=== PATIENT | female | born 1965 | race African-American/Black ===

== ENCOUNTER 2017-12-14 09:51 | Observation (INO) ==
[2017-12-14 11:25] LABS: Basophils % 0.6 % (0.0-0.8); Eosinophils # 0.1 10*3/uL (0.0-0.87); Eosinophils % 1.7 % (0.00-10.9); Hematocrit 38.7 VOL% (35.7-47.0); Immature Granulocytes % 0.3 %; Immature Granulocytes Absolute 0.02 #; Mean Corpuscular HGB Conc 33.6 GM/DL (32-36); Mean Corpuscular Hemoglobin 28 PG (27-34); Mean Corpuscular Volume 83.6 FL (87-102); Mean Platelet Volume 11.4 FL (9.6-12.0); Monocytes # 0.5 10*3/uL (0.11-0.8); Monocytes % 7.4 % (1.7-12.7); Neutrophils # 3.9 10*3/uL (1.4-7.4); Platelet Count 268 T/CUMM (130-400); Red Blood Count 4.63 MC/CUMM (3.8-5.5); Red Cell Distribution Width 13.9 % (9.3-17.3); White Blood Count 6.5 T/CUMM (4-12)
[2017-12-14 12:17] LABS: Albumin 3.9 G/DL (3.4-5.0); Bilirubin,Total 0.5 MG/DL (0.2-1.0); Calcium 9.8 MG/DL (8.5-10.1); Osmolality,Calculated 280.3 MOS/KG (273-304); Potassium 3.4 MMOL/L (3.5-5.1); Total Protein 7.8 G/DL (6.4-8.3)
[2017-12-14] MEDS ORDERED: ONDANSETRON 4 MG/2 ML VIAL IV STA (12:53)
[2017-12-14] MEDS ORDERED: MORPHINE 4 MG/1 ML VIAL IV STA (12:53)
[2017-12-14] MEDS ORDERED: ASPIRIN 325 MG TABLET PO STA (12:53)
[2017-12-14] MEDS ORDERED: METOPROLOL TARTRATE 25 MG TABLET PO STA (12:53)
[2017-12-14] MEDS ORDERED: NITROGLYCERIN 2% OINT 1 INCH/GM PACK TOP STA (12:53)
[2017-12-14] MEDS ORDERED: ALUM/MAG/SIMETH/LIDO VISC 1:1 30 ML BOTTLE PO STA (12:53)
[2017-12-14] MEDS ORDERED: CETIRIZINE 10 MG TABLET PO PRN (14:21)
[2017-12-14] MEDS ORDERED: DICLOFENAC 1% GEL 100 GM TUBE TOP PRN (14:21)
[2017-12-14] MEDS ORDERED: LIDOCAINE 5% PATCH TRANSDERM PRN (14:21)
[2017-12-14] MEDS ORDERED: MORPHINE 4 MG/1 ML VIAL IV PRN (14:23)
[2017-12-14] MEDS ORDERED: ONDANSETRON 4 MG/2 ML VIAL IV PRN (14:23)
[2017-12-14] MEDS ORDERED: diphenhydrAMINE CAP 25 MG CAPSULE PO PRN (14:23)
[2017-12-14] MEDS ORDERED: ACETAMINOPHEN 325 MG TABLET PO PRN (14:23)
[2017-12-14] MEDS ORDERED: DOCUSATE SODIUM 100 MG CAPSULE PO PRN (14:23)
[2017-12-14] MEDS ORDERED: LISINOPRIL 20 MG TABLET PO SCH (14:30)
[2017-12-14] MEDS ORDERED: POTASSIUM CHLORIDE 20 MEQ TABLET PO ONE (14:32)
[2017-12-14] MEDS: ASPIRIN EC 81 MG TABLET PO SCH (15:00)
[2017-12-14] MEDS: OLMESARTAN 20 MG TABLET PO SCH (15:34)
[2017-12-14] MEDS: ATORVASTATIN 10 MG TABLET PO SCH (15:34)
[2017-12-14] MEDS: OMEGA 3 ACID ETHYL ESTERS 1 GM CAPSULE PO SCH (15:35)
[2017-12-14] MEDS: GABAPENTIN 600 MG TABLET PO SCH (15:35)
[2017-12-14] MEDS: ENOXAPARIN 40 MG/0.4 ML SYRINGE SUBCUT SCH (15:35)
[2017-12-14] MEDS: PANTOPRAZOLE 40 MG TABLET PO SCH (15:35)
[2017-12-14] MEDS: amLODIPine 10 MG TABLET PO SCH (15:35)
[2017-12-14] MEDS: FLUoxetine 20 MG CAPSULE PO SCH (15:36)
[2017-12-14] MEDS: hydroCHLOROthiazide 25 MG TABLET PO SCH (15:36)
[2017-12-14] MEDS ORDERED: GABAPENTIN 600 MG TABLET PO SCH (21:00)
[2017-12-14] MEDS ORDERED: PRAZOSIN 1 MG CAPSULE PO SCH (21:00)
[2017-12-14] MEDS ORDERED: tiZANidine 4 MG TABLET PO SCH (21:00)
[2017-12-15 05:34] LABS: Basophils % 0.6 % (0.0-0.8); Eosinophils # 0.2 10*3/uL (0.0-0.87); Eosinophils % 2.8 % (0.00-10.9); Hemoglobin 11.2 GM/DL (12.0-16.0); Immature Granulocytes % 0.5 %; Immature Granulocytes Absolute 0.03 #; Lymphocytes % 31.4 % (21.3-54.2); Mean Corpuscular Hemoglobin 27 PG (27-34); Mean Corpuscular Volume 85.2 FL (87-102); Mean Platelet Volume 11.6 FL (9.6-12.0); Monocytes # 0.5 10*3/uL (0.11-0.8); Monocytes % 7.4 % (1.7-12.7); Neutrophils # 3.7 10*3/uL (1.4-7.4); Neutrophils % 57.3 % (38.7-73.9); Platelet Count 257 T/CUMM (130-400); Red Blood Count 4.11 MC/CUMM (3.8-5.5); Red Cell Distribution Width 14.1 % (9.3-17.3); White Blood Count 6.5 T/CUMM (4-12)
[2017-12-15 06:15] LABS: Osmolality,Calculated 285.3 MOS/KG (273-304); Potassium 3.9 MMOL/L (3.5-5.1); Risk Ratio 4.6
[2017-12-15] MEDS: amLODIPine 10 MG TABLET PO SCH (10:10)
[2017-12-15] MEDS: FLUoxetine 20 MG CAPSULE PO SCH (10:11)
[2017-12-15] MEDS: PANTOPRAZOLE 40 MG TABLET PO SCH (10:11)
[2017-12-15] MEDS: OLMESARTAN 20 MG TABLET PO SCH (10:11)
[2017-12-15] MEDS: ASPIRIN EC 81 MG TABLET PO SCH (10:11)
[2017-12-15] MEDS: OMEGA 3 ACID ETHYL ESTERS 1 GM CAPSULE PO SCH (10:12)
[2017-12-15] MEDS: ATORVASTATIN 10 MG TABLET PO SCH (10:12)
[2017-12-15] MEDS: hydroCHLOROthiazide 25 MG TABLET PO SCH (10:12)
[2017-12-15] MEDS: GABAPENTIN 600 MG TABLET PO SCH ×2 (10:12→15:50)
[2017-12-15] MEDS: ENOXAPARIN 40 MG/0.4 ML SYRINGE SUBCUT SCH (15:50)
[2017-12-15 17:38] VITALS: BP 139/83
== END 2017-12-15 18:15 | disposition home or self-care (01) ==
LOC: N.EDINP 09:51 → N.ED 09:51 → N.TELES 18:25
PROVIDERS: ADMIT Internal Medicine; ATTEND Internal Medicine

== ENCOUNTER 2019-10-05 12:10 | Inpatient (IN) ==
[2019-10-05 13:18] LABS: Basophils # 0.1 10*3/uL (0.0-0.2); Basophils % 0.7 % (0.0-0.8); Eosinophils # 0.3 10*3/uL (0.0-0.87); Eosinophils % 4.1 % (0.00-10.9); Hematocrit 38.5 VOL% (35.7-47.0); Hemoglobin 12.4 GM/DL (12.0-16.0); Immature Granulocytes % 0.3 %; Immature Granulocytes Absolute 0.02 #; Lymphocytes # 2.3 10*3/uL (1.4-4.0); Lymphocytes % 31.5 % (21.3-54.2); Mean Corpuscular HGB Conc 32.2 GM/DL (32-36); Mean Corpuscular Volume 86.3 FL (87-102); Mean Platelet Volume 11.1 FL (9.6-12.0); Neutrophils % 56.4 % (38.7-73.9); Platelet Count 289 T/CUMM (130-400); Red Blood Count 4.46 MC/CUMM (3.8-5.5); Red Cell Distribution Width 13.4 % (9.3-17.3); White Blood Count 7.4 T/CUMM (4-12)
[2019-10-05 13:32] LABS: INR 0.9; PT Patient Result 10.2 SECS (9.6-12.2)
[2019-10-05 13:36] LABS: Albumin 4.1 G/DL (3.4-5.0); Bilirubin,Total 0.5 MG/DL (0.2-1.0); Calcium 9.3 MG/DL (8.5-10.1); Osmolality,Calculated 277.4 MOS/KG (273-304); Total Protein 8.1 G/DL (6.4-8.3)
[2019-10-05] MEDS ORDERED: ALBUTEROL 2.5 MG/3 ML NEB RESP TX PRN (14:31)
[2019-10-05] MEDS ORDERED: ONDANSETRON 4 MG/2 ML VIAL IV PRN (14:31)
[2019-10-05] MEDS ORDERED: ACETAMINOPHEN 325 MG TABLET PO PRN (14:31)
[2019-10-05] MEDS ORDERED: hydrALAZINE 20 MG/1 ML VIAL IV PRN (14:31)
[2019-10-05] MEDS ORDERED: SODIUM CHLORIDE 0.9% 1,000 ML IV PRN (14:41)
[2019-10-05] MEDS ORDERED: SODIUM CHLORIDE 0.9% 1,000 ML IV STA (15:07)
[2019-10-05] MEDS: SODIUM CHLORIDE 0.9% 1,000 ML IV SCH ×2 (16:17→23:43)
[2019-10-05 16:32] LABS: Risk Ratio 4.59; Thyroid Stimulating Hormone 2.23 uIU/ml (0.358-3.74); VLDL CHOLESTEROL 53.8 MG/DL
[2019-10-05 17:07] LABS: Hematocrit 30.8 VOL% (35.7-47.0)
[2019-10-05 17:08] LABS: Hemoglobin 10.2 GM/DL (12.0-16.0)
[2019-10-05] MEDS ORDERED: POLYETHYLENE GLYCOL POWDER 255 GM BOTTLE PO ONE ×2 (18:00→21:00)
[2019-10-05] MEDS: BISACODYL 5 MG TABLET PO SCH (18:49)
[2019-10-05] MEDS ORDERED: MAGNESIUM CITRATE 300 ML BOTTLE PO ONE (21:00)
[2019-10-05 21:25] LABS: Hematocrit 30.6 VOL% (35.7-47.0); Hemoglobin 9.8 GM/DL (12.0-16.0)
[2019-10-05] MEDS: PANTOPRAZOLE 40 MG VIAL IV SCH (22:02)
[2019-10-06] MEDS: BISACODYL 5 MG TABLET PO SCH ×2 (03:45→10:47)
[2019-10-06] MEDS: SODIUM CHLORIDE 0.9% 1,000 ML IV SCH ×2 (05:11→12:30)
[2019-10-06 05:42] LABS: Basophils # 0.1 10*3/uL (0.0-0.2); Basophils % 0.7 % (0.0-0.8); Eosinophils # 0.2 10*3/uL (0.0-0.87); Eosinophils % 2.4 % (0.00-10.9); Hematocrit 26.9 VOL% (35.7-47.0); Hemoglobin 8.5 GM/DL (12.0-16.0); Immature Granulocytes % 0.3 %; Immature Granulocytes Absolute 0.02 #; Lymphocytes # 1.7 10*3/uL (1.4-4.0); Lymphocytes % 24.2 % (21.3-54.2); Mean Corpuscular HGB Conc 31.6 GM/DL (32-36); Mean Corpuscular Volume 88.2 FL (87-102); Mean Platelet Volume 11.4 FL (9.6-12.0); Monocytes % 8.6 % (1.7-12.7); Neutrophils % 63.8 % (38.7-73.9); Platelet Count 221 T/CUMM (130-400); Red Blood Count 3.05 MC/CUMM (3.8-5.5); Red Cell Distribution Width 13.5 % (9.3-17.3); White Blood Count 7.1 T/CUMM (4-12)
[2019-10-06 06:12] LABS: Calcium 8.1 MG/DL (8.5-10.1); Osmolality,Calculated 281.1 MOS/KG (273-304)
[2019-10-06] MEDS: POTASSIUM CHLORIDE RIDER 10 MEQ in PREMIX 1 EACH IV PRN ×4 (07:23→14:20)
[2019-10-06] MEDS: PANTOPRAZOLE 40 MG VIAL IV SCH ×2 (08:25→21:02)
[2019-10-06] MEDS ORDERED: LIDOCAINE 2% 5 ML VIAL ONE (09:00)
[2019-10-06] MEDS ORDERED: propofoL 200 MG/20 ML VIAL IV ONE (09:00)
[2019-10-06 11:49] LABS: Amorphous Crystals,Urine Occasional /HPF (Few); Apearance,Urine CLEAR (Clear); Bacteria,Urine Few /HPF (Few); Bilirubin,Urine Negative (Negative); Blood, Urine Large mg/dL (Negative); Glucose,Urine (UA) Negative (Negative); Ketones,Urine Negative (Negative); Mucus,Urine Occasional /LPF (Occasional); Nitrite,Urine Negative (Negative); Protein,Urine Negative; Squamous Epithelial Cell,Urine Occasional /HPF (0-10); Urine Color Straw (Yellow); Urine Specific Gravity 1.005 (1.001-1.035); Urine Urobilinogen < 2.0 EU/DL (0.2-1.0)
[2019-10-06 14:35] LABS: Hematocrit 29.3 VOL% (35.7-47.0)
[2019-10-06 14:36] LABS: Hemoglobin 9.2 GM/DL (12.0-16.0)
[2019-10-06] MEDS ORDERED: GABAPENTIN 600 MG TABLET PO SCH (21:00)
[2019-10-06 21:01] LABS: Hematocrit 27.3 VOL% (35.7-47.0); Hemoglobin 8.6 GM/DL (12.0-16.0)
[2019-10-06] MEDS: GABAPENTIN 600 MG TABLET PO SCH (21:01)
[2019-10-07 05:04] LABS: Basophils # 0.1 10*3/uL (0.0-0.2); Basophils % 0.6 % (0.0-0.8); Eosinophils # 0.4 10*3/uL (0.0-0.87); Eosinophils % 4.8 % (0.00-10.9); Hematocrit 27.1 VOL% (35.7-47.0); Hemoglobin 8.4 GM/DL (12.0-16.0); Immature Granulocytes % 0.5 %; Immature Granulocytes Absolute 0.04 #; Lymphocytes # 1.9 10*3/uL (1.4-4.0); Lymphocytes % 24.5 % (21.3-54.2); Mean Corpuscular Volume 88.6 FL (87-102); Mean Platelet Volume 11.5 FL (9.6-12.0); Monocytes % 7.1 % (1.7-12.7); Neutrophils % 62.5 % (38.7-73.9); Platelet Count 219 T/CUMM (130-400); Red Blood Count 3.06 MC/CUMM (3.8-5.5); Red Cell Distribution Width 13.7 % (9.3-17.3); White Blood Count 7.8 T/CUMM (4-12)
[2019-10-07 05:31] LABS: Calcium 8.4 MG/DL (8.5-10.1); Osmolality,Calculated 283.1 MOS/KG (273-304)
[2019-10-07] MEDS: POTASSIUM CHLORIDE RIDER 10 MEQ in PREMIX 1 EACH IV PRN (06:20)
[2019-10-07] MEDS ORDERED: POTASSIUM CHLORIDE 20 MEQ TABLET PO ONE (06:52)
[2019-10-07] MEDS ORDERED: FLUoxetine 20 MG CAPSULE PO SCH (09:00)
[2019-10-07] MEDS ORDERED: ATORVASTATIN 10 MG TABLET PO SCH (09:00)
[2019-10-07] MEDS: GABAPENTIN 600 MG TABLET PO SCH (10:09)
[2019-10-07] MEDS: PANTOPRAZOLE 40 MG VIAL IV SCH (10:09)
[2019-10-07 11:44] VITALS: BP 145/99
== END 2019-10-07 13:50 | disposition home or self-care (01) | DRG 379 ==
LOC: N.ED 12:10 → N.EDINP 14:31 → SUATTDRO 14:31 → N.CC 16:15 → N.4E 10-06 17:11
PROVIDERS: ADMIT Emergency Medicine; ATTEND Internal Medicine

== ENCOUNTER 2019-10-08 00:10 | Inpatient (IN) ==
[2019-10-08] MEDS ORDERED: SODIUM CHLORIDE 0.9% 1,000 ML IV STA (00:28)
[2019-10-08 00:56] LABS: Basophils # 0.1 10*3/uL (0.0-0.2); Basophils % 0.5 % (0.0-0.8); Eosinophils # 0.3 10*3/uL (0.0-0.87); Eosinophils % 2.9 % (0.00-10.9); Hematocrit 25.1 VOL% (35.7-47.0); Immature Granulocytes % 0.4 %; Immature Granulocytes Absolute 0.04 #; Lymphocytes # 2.1 10*3/uL (1.4-4.0); Lymphocytes % 21.9 % (21.3-54.2); Mean Corpuscular HGB Conc 31.9 GM/DL (32-36); Mean Corpuscular Volume 88.7 FL (87-102); Mean Platelet Volume 11.2 FL (9.6-12.0); Monocytes % 5.7 % (1.7-12.7); Neutrophils % 68.6 % (38.7-73.9); Platelet Count 252 T/CUMM (130-400); Red Blood Count 2.83 MC/CUMM (3.8-5.5); Red Cell Distribution Width 13.7 % (9.3-17.3); White Blood Count 9.8 T/CUMM (4-12)
[2019-10-08 01:07] LABS: INR 0.9; Partial Thromboplastin Time 24.4 SECS (20.8-36.0)
[2019-10-08 01:18] LABS: Albumin 3.3 G/DL (3.4-5.0); Bilirubin,Total 0.7 MG/DL (0.2-1.0); Calcium 8.7 MG/DL (8.5-10.1); Osmolality,Calculated 282.5 MOS/KG (273-304); Total Protein 6.8 G/DL (6.4-8.3)
[2019-10-08] MEDS ORDERED: ONDANSETRON 4 MG/2 ML VIAL IV PRN (01:25)
[2019-10-08] MEDS ORDERED: SODIUM CHLORIDE 0.9% 1,000 ML IV PRN ×2 (01:28→23:14)
[2019-10-08] MEDS ORDERED: CETIRIZINE 10 MG TABLET PO PRN (01:37)
[2019-10-08] MEDS ORDERED: ONDANSETRON ODT 4 MG TABLET PO PRN (01:37)
[2019-10-08] MEDS ORDERED: DICLOFENAC 1% GEL 100 GM TUBE TOP PRN (01:37)
[2019-10-08] MEDS: SODIUM CHLORIDE 0.9% 1,000 ML IV SCH ×3 (05:05→23:39)
[2019-10-08 05:18] LABS: Hematocrit 20.4 VOL% (35.7-47.0)
[2019-10-08 05:24] LABS: Hemoglobin 6.3 GM/DL (12.0-16.0)
[2019-10-08] MEDS: POLYETHYLENE GLYCOL POWDER 17 GM PACK PO SCH ×2 (06:29→08:49)
[2019-10-08] MEDS: FLUoxetine 20 MG CAPSULE PO SCH (08:48)
[2019-10-08] MEDS: OMEGA 3 ACID ETHYL ESTERS 1 GM CAPSULE PO SCH ×2 (08:48→16:50)
[2019-10-08] MEDS: POTASSIUM CHLORIDE 20 MEQ TABLET PO SCH (08:48)
[2019-10-08] MEDS: OLMESARTAN 20 MG TABLET PO SCH (08:48)
[2019-10-08] MEDS: ATORVASTATIN 10 MG TABLET PO SCH (08:49)
[2019-10-08] MEDS: FERROUS SULFATE 325 MG TABLET PO SCH ×2 (08:49→21:03)
[2019-10-08] MEDS: GABAPENTIN 600 MG TABLET PO SCH ×3 (08:49→21:03)
[2019-10-08] MEDS: hydroCHLOROthiazide 25 MG TABLET PO SCH (08:49)
[2019-10-08] MEDS: CHOLECALCIFEROL 1,000 UNIT TABLET PO SCH (08:49)
[2019-10-08] MEDS: amLODIPine 10 MG TABLET PO SCH (08:49)
[2019-10-08] MEDS: PANTOPRAZOLE 40 MG VIAL IV SCH (11:09)
[2019-10-08] MEDS: INSULIN LISPRO 100 UNIT/ML SUBCUT SCH ×3 (12:07→21:06)
[2019-10-08 13:24] LABS: Hemoglobin 8.7 GM/DL (12.0-16.0)
[2019-10-08 15:19] LABS: Hematocrit 26.1 VOL% (35.7-47.0); Hemoglobin 8.3 GM/DL (12.0-16.0)
[2019-10-08] MEDS: tiZANidine 4 MG TABLET PO SCH (21:03)
[2019-10-08] MEDS: PRAZOSIN 1 MG CAPSULE PO SCH (21:04)
[2019-10-08] MEDS ORDERED: NALOXONE 0.4 MG/ML VIAL ONE (22:14)
[2019-10-08 22:48] LABS: ABG Base Excess -1.5 MMOL/L (-2.5-2.5); ABG HCO3 23.1 MMOL/L (20-26); ABG Oxygen Saturation 99.9 % (95-100); ABG PCO2 39.6 MM HG (35-48); ABG TCO2 21.8 MMOL/L (23-27)
[2019-10-08] MEDS ORDERED: SODIUM CHLORIDE 0.9% 1,000 ML IV ONE (22:49)
[2019-10-08] MEDS ORDERED: NALOXONE 0.4 MG/ML VIAL IV ONE (22:50)
[2019-10-08 23:02] LABS: Basophils % 0.4 % (0.0-0.8); Eosinophils # 0.4 10*3/uL (0.0-0.87); Eosinophils % 4.8 % (0.00-10.9); Hematocrit 21.4 VOL% (35.7-47.0); Hemoglobin 6.8 GM/DL (12.0-16.0); Immature Granulocytes % 0.7 %; Immature Granulocytes Absolute 0.06 #; Lymphocytes # 2.4 10*3/uL (1.4-4.0); Lymphocytes % 29.7 % (21.3-54.2); Mean Corpuscular HGB Conc 31.8 GM/DL (32-36); Mean Corpuscular Volume 89.5 FL (87-102); Mean Platelet Volume 11.2 FL (9.6-12.0); Monocytes % 5.9 % (1.7-12.7); Neutrophils % 58.5 % (38.7-73.9); Platelet Count 176 T/CUMM (130-400); Red Blood Count 2.39 MC/CUMM (3.8-5.5); White Blood Count 8.1 T/CUMM (4-12)
[2019-10-08 23:11] LABS: Alanine Aminotransferase 13 U/L (13-56); Albumin 2.6 G/DL (3.4-5.0); Alkaline Phosphatase 42 U/L (45-117); Aspartate Amino Transferase 11 U/L (0-37); Bilirubin,Total < 0.39 MG/DL (0.2-1.0); Blood Urea Nitrogen 7 MG/DL (7-18); Calcium 7.5 MG/DL (8.5-10.1); Estimated Glom Filtration Rate 98 ML/MIN; Glucose 222 MG/DL (74-106); Osmolality,Calculated 281.5 MOS/KG (273-304)
[2019-10-09 05:25] LABS: Hemoglobin 9.5 GM/DL (12.0-16.0)
[2019-10-09] MEDS: SODIUM CHLORIDE 0.9% 1,000 ML IV SCH (07:17)
[2019-10-09] MEDS: INSULIN LISPRO 100 UNIT/ML SUBCUT SCH ×4 (07:38→20:22)
[2019-10-09 08:28] LABS: Basophils % 0.3 % (0.0-0.8); Eosinophils # 0.4 10*3/uL (0.0-0.87); Eosinophils % 3.8 % (0.00-10.9); Hematocrit 30.5 VOL% (35.7-47.0); Hemoglobin 9.8 GM/DL (12.0-16.0); Immature Granulocytes % 0.6 %; Immature Granulocytes Absolute 0.06 #; Lymphocytes # 2.4 10*3/uL (1.4-4.0); Lymphocytes % 23.7 % (21.3-54.2); Mean Corpuscular HGB Conc 32.1 GM/DL (32-36); Mean Corpuscular Volume 89.2 FL (87-102); Mean Platelet Volume 11.1 FL (9.6-12.0); Monocytes % 5.3 % (1.7-12.7); Neutrophils % 66.3 % (38.7-73.9); Platelet Count 179 T/CUMM (130-400); Red Blood Count 3.42 MC/CUMM (3.8-5.5); Red Cell Distribution Width 14.5 % (9.3-17.3); White Blood Count 10.1 T/CUMM (4-12)
[2019-10-09] MEDS: PANTOPRAZOLE 40 MG VIAL IV SCH (08:34)
[2019-10-09] MEDS: hydroCHLOROthiazide 25 MG TABLET PO SCH (08:35)
[2019-10-09] MEDS: amLODIPine 10 MG TABLET PO SCH (08:35)
[2019-10-09] MEDS: OLMESARTAN 20 MG TABLET PO SCH (08:35)
[2019-10-09] MEDS: FLUoxetine 20 MG CAPSULE PO SCH (08:35)
[2019-10-09] MEDS: OMEGA 3 ACID ETHYL ESTERS 1 GM CAPSULE PO SCH ×2 (08:35→17:19)
[2019-10-09] MEDS: FERROUS SULFATE 325 MG TABLET PO SCH ×2 (08:35→20:24)
[2019-10-09] MEDS: ATORVASTATIN 10 MG TABLET PO SCH (08:36)
[2019-10-09] MEDS: CHOLECALCIFEROL 1,000 UNIT TABLET PO SCH (08:36)
[2019-10-09] MEDS: GABAPENTIN 600 MG TABLET PO SCH ×3 (08:36→20:24)
[2019-10-09] MEDS: POTASSIUM CHLORIDE 20 MEQ TABLET PO SCH (08:37)
[2019-10-09 08:56] LABS: Calcium 8.4 MG/DL (8.5-10.1); Osmolality,Calculated 277.4 MOS/KG (273-304)
[2019-10-09] MEDS ORDERED: POLYETHYLENE GLYCOL POWDER 17 GM PACK PO SCH (09:00)
[2019-10-09] MEDS ORDERED: BISACODYL 5 MG TABLET PO SCH (12:00)
[2019-10-09] MEDS: BISACODYL 5 MG TABLET PO SCH ×2 (13:16→20:24)
[2019-10-09 15:55] LABS: Hematocrit 32.2 VOL% (35.7-47.0); Hemoglobin 10.8 GM/DL (12.0-16.0)
[2019-10-09] MEDS ORDERED: MAGNESIUM CITRATE 300 ML BOTTLE PO ONE ×2 (16:00→21:00)
[2019-10-09] MEDS ORDERED: POLYETHYLENE GLYCOL POWDER 255 GM BOTTLE PO ONE ×2 (18:00)
[2019-10-09 19:42] LABS: Hematocrit 31.7 VOL% (35.7-47.0); Hemoglobin 10.1 GM/DL (12.0-16.0)
[2019-10-09] MEDS: PRAZOSIN 1 MG CAPSULE PO SCH (20:23)
[2019-10-09] MEDS: tiZANidine 4 MG TABLET PO SCH (20:24)
[2019-10-09 22:51] LABS: Hemoglobin 8.6 GM/DL (12.0-16.0)
[2019-10-09] MEDS ORDERED: SODIUM CHLORIDE 0.9% 1,000 ML IV PRN (23:18)
[2019-10-10] MEDS ORDERED: SODIUM CHLORIDE 0.9% 500 ML IV ONE (00:16)
[2019-10-10] MEDS ORDERED: SODIUM CHLORIDE 0.9% 1,000 ML IV PRN (00:17)
[2019-10-10] MEDS: SODIUM CHLORIDE 0.9% 1,000 ML IV SCH ×3 (00:51→15:39)
[2019-10-10 04:58] LABS: Basophils % 0.3 % (0.0-0.8); Eosinophils # 0.2 10*3/uL (0.0-0.87); Eosinophils % 1.5 % (0.00-10.9); Hematocrit 34.4 VOL% (35.7-47.0); Hemoglobin 11.2 GM/DL (12.0-16.0); Immature Granulocytes % 0.5 %; Immature Granulocytes Absolute 0.06 #; Lymphocytes # 1.8 10*3/uL (1.4-4.0); Lymphocytes % 16.5 % (21.3-54.2); Mean Corpuscular HGB Conc 32.6 GM/DL (32-36); Mean Corpuscular Volume 87.3 FL (87-102); Mean Platelet Volume 11.3 FL (9.6-12.0); Monocytes % 5.5 % (1.7-12.7); Neutrophils % 75.7 % (38.7-73.9); Platelet Count 187 T/CUMM (130-400); Red Blood Count 3.94 MC/CUMM (3.8-5.5); Red Cell Distribution Width 14.6 % (9.3-17.3)
[2019-10-10 05:18] LABS: Calcium 8.1 MG/DL (8.5-10.1)
[2019-10-10] MEDS: BISACODYL 5 MG TABLET PO SCH ×3 (06:17→22:03)
[2019-10-10] MEDS: INSULIN LISPRO 100 UNIT/ML SUBCUT SCH ×4 (07:44→22:03)
[2019-10-10] MEDS ORDERED: propofoL 200 MG/20 ML VIAL IV ONE (09:00)
[2019-10-10] MEDS ORDERED: LIDOCAINE 2% 5 ML VIAL ONE (09:00)
[2019-10-10] MEDS ORDERED: ONDANSETRON 4 MG/2 ML VIAL ONE (09:00)
[2019-10-10] MEDS: OLMESARTAN 20 MG TABLET PO SCH (11:09)
[2019-10-10] MEDS: hydroCHLOROthiazide 25 MG TABLET PO SCH (11:10)
[2019-10-10] MEDS: OMEGA 3 ACID ETHYL ESTERS 1 GM CAPSULE PO SCH ×2 (11:10→16:20)
[2019-10-10] MEDS: FLUoxetine 20 MG CAPSULE PO SCH (11:11)
[2019-10-10] MEDS: CHOLECALCIFEROL 1,000 UNIT TABLET PO SCH (11:12)
[2019-10-10] MEDS: GABAPENTIN 600 MG TABLET PO SCH ×3 (11:12→22:01)
[2019-10-10] MEDS: ATORVASTATIN 10 MG TABLET PO SCH (11:12)
[2019-10-10] MEDS: FERROUS SULFATE 325 MG TABLET PO SCH ×2 (11:13→22:02)
[2019-10-10] MEDS: amLODIPine 10 MG TABLET PO SCH (11:14)
[2019-10-10] MEDS: POTASSIUM CHLORIDE 20 MEQ TABLET PO SCH (11:14)
[2019-10-10 11:15] LABS: Hematocrit 36.3 VOL% (35.7-47.0); Hemoglobin 11.7 GM/DL (12.0-16.0)
[2019-10-10] MEDS: PANTOPRAZOLE 40 MG VIAL IV SCH (11:19)
[2019-10-10 15:44] LABS: Hematocrit 36.8 VOL% (35.7-47.0); Hemoglobin 11.8 GM/DL (12.0-16.0)
[2019-10-10] MEDS: PRAZOSIN 1 MG CAPSULE PO SCH (22:02)
[2019-10-10] MEDS: tiZANidine 4 MG TABLET PO SCH (22:03)
[2019-10-11 05:14] LABS: Basophils % 0.4 % (0.0-0.8); Eosinophils # 0.3 10*3/uL (0.0-0.87); Eosinophils % 3.4 % (0.00-10.9); Hematocrit 33.6 VOL% (35.7-47.0); Hemoglobin 10.8 GM/DL (12.0-16.0); Immature Granulocytes % 0.4 %; Immature Granulocytes Absolute 0.04 #; Lymphocytes # 2.2 10*3/uL (1.4-4.0); Lymphocytes % 21.7 % (21.3-54.2); Mean Corpuscular HGB Conc 32.1 GM/DL (32-36); Mean Corpuscular Volume 89.4 FL (87-102); Mean Platelet Volume 11.1 FL (9.6-12.0); Monocytes % 6.9 % (1.7-12.7); Neutrophils % 67.2 % (38.7-73.9); Platelet Count 215 T/CUMM (130-400); Red Blood Count 3.76 MC/CUMM (3.8-5.5); Red Cell Distribution Width 14.8 % (9.3-17.3)
[2019-10-11] MEDS: BISACODYL 5 MG TABLET PO SCH ×3 (05:26→22:26)
[2019-10-11 05:29] LABS: Calcium 8.7 MG/DL (8.5-10.1); Osmolality,Calculated 273.7 MOS/KG (273-304)
[2019-10-11] MEDS ORDERED: GABAPENTIN 600 MG TABLET PO PRN ×2 (08:58)
[2019-10-11] MEDS: FLUoxetine 20 MG CAPSULE PO SCH (09:01)
[2019-10-11] MEDS: OMEGA 3 ACID ETHYL ESTERS 1 GM CAPSULE PO SCH ×2 (09:01→16:59)
[2019-10-11] MEDS: ATORVASTATIN 10 MG TABLET PO SCH (09:01)
[2019-10-11] MEDS: CHOLECALCIFEROL 1,000 UNIT TABLET PO SCH (09:01)
[2019-10-11] MEDS: PANTOPRAZOLE 40 MG VIAL IV SCH (09:02)
[2019-10-11] MEDS: POTASSIUM CHLORIDE 20 MEQ TABLET PO SCH (09:02)
[2019-10-11] MEDS: FERROUS SULFATE 325 MG TABLET PO SCH ×2 (09:02→22:17)
[2019-10-11] MEDS: OLMESARTAN 20 MG TABLET PO SCH (09:02)
[2019-10-11] MEDS: hydroCHLOROthiazide 25 MG TABLET PO SCH (09:02)
[2019-10-11] MEDS: amLODIPine 10 MG TABLET PO SCH (09:02)
[2019-10-11] MEDS: INSULIN LISPRO 100 UNIT/ML SUBCUT SCH (10:51)
[2019-10-11] MEDS: GABAPENTIN 600 MG TABLET PO SCH (10:53)
[2019-10-11] MEDS: PRAZOSIN 1 MG CAPSULE PO SCH (22:26)
[2019-10-11] MEDS: tiZANidine 4 MG TABLET PO SCH (22:26)
[2019-10-12] MEDS: BISACODYL 5 MG TABLET PO SCH ×2 (04:06→13:05)
[2019-10-12 05:49] LABS: Basophils % 0.4 % (0.0-0.8); Eosinophils # 0.3 10*3/uL (0.0-0.87); Eosinophils % 3.4 % (0.00-10.9); Hematocrit 34.3 VOL% (35.7-47.0); Hemoglobin 11.3 GM/DL (12.0-16.0); Immature Granulocytes % 0.3 %; Immature Granulocytes Absolute 0.03 #; Lymphocytes % 20.4 % (21.3-54.2); Mean Corpuscular HGB Conc 32.9 GM/DL (32-36); Mean Corpuscular Volume 86.2 FL (87-102); Mean Platelet Volume 11.6 FL (9.6-12.0); Monocytes % 6.4 % (1.7-12.7); Neutrophils % 69.1 % (38.7-73.9); Platelet Count 230 T/CUMM (130-400); Red Blood Count 3.98 MC/CUMM (3.8-5.5); Red Cell Distribution Width 14.5 % (9.3-17.3)
[2019-10-12 06:16] LABS: Calcium 8.9 MG/DL (8.5-10.1); Osmolality,Calculated 272.8 MOS/KG (273-304)
[2019-10-12] MEDS ORDERED: POTASSIUM CHLORIDE 20 MEQ TABLET PO ONE (07:41)
[2019-10-12] MEDS: PANTOPRAZOLE 40 MG VIAL IV SCH (09:43)
[2019-10-12] MEDS: hydroCHLOROthiazide 25 MG TABLET PO SCH (09:43)
[2019-10-12] MEDS: ATORVASTATIN 10 MG TABLET PO SCH (09:43)
[2019-10-12] MEDS: FERROUS SULFATE 325 MG TABLET PO SCH (09:43)
[2019-10-12] MEDS: POTASSIUM CHLORIDE 20 MEQ TABLET PO SCH (09:43)
[2019-10-12] MEDS: CHOLECALCIFEROL 1,000 UNIT TABLET PO SCH (09:43)
[2019-10-12] MEDS: amLODIPine 10 MG TABLET PO SCH (09:43)
[2019-10-12] MEDS: OMEGA 3 ACID ETHYL ESTERS 1 GM CAPSULE PO SCH (09:43)
[2019-10-12] MEDS: OLMESARTAN 20 MG TABLET PO SCH (09:43)
[2019-10-12] MEDS: FLUoxetine 20 MG CAPSULE PO SCH (09:44)
[2019-10-12 16:39] VITALS: BP 118/77
== END 2019-10-12 17:09 | disposition home or self-care (01) | DRG 377 ==
LOC: N.ED 00:10 → N.EDINP 01:25 → SUATTDRO 01:25 → N.ICU 03:00 → N.2E 13:57 → N.CC 13:57 → N.5E 10-10 18:38
PROVIDERS: ADMIT Phlebology; ATTEND Internal Medicine Geriatric Medicine

== ENCOUNTER 2019-10-13 10:18 | Observation (INO) ==
[2019-10-13 11:04] LABS: Basophils % 0.4 % (0.0-0.8); Eosinophils # 0.2 10*3/uL (0.0-0.87); Eosinophils % 1.9 % (0.00-10.9); Hematocrit 34.8 VOL% (35.7-47.0); Hemoglobin 11.3 GM/DL (12.0-16.0); Immature Granulocytes % 0.7 %; Immature Granulocytes Absolute 0.06 #; Lymphocytes # 1.4 10*3/uL (1.4-4.0); Lymphocytes % 15.4 % (21.3-54.2); Mean Corpuscular HGB Conc 32.5 GM/DL (32-36); Mean Corpuscular Volume 87.4 FL (87-102); Mean Platelet Volume 10.6 FL (9.6-12.0); Neutrophils % 75.6 % (38.7-73.9); Platelet Count 263 T/CUMM (130-400); Red Blood Count 3.98 MC/CUMM (3.8-5.5); Red Cell Distribution Width 14.2 % (9.3-17.3); White Blood Count 9.2 T/CUMM (4-12)
[2019-10-13 11:13] LABS: INR 0.9; PT Patient Result 10.2 SECS (9.6-12.2)
[2019-10-13 11:25] LABS: Albumin 3.4 G/DL (3.4-5.0); Bilirubin,Total 0.7 MG/DL (0.2-1.0); Calcium 8.9 MG/DL (8.5-10.1); Osmolality,Calculated 274.7 MOS/KG (273-304); Total Protein 6.8 G/DL (6.4-8.3)
[2019-10-13] MEDS ORDERED: POTASSIUM CHLORIDE RIDER 10 MEQ in PREMIX 1 EACH IV PRN (12:07)
[2019-10-13] MEDS: SODIUM CHLORIDE 0.9% 1,000 ML IV SCH (14:21)
[2019-10-13] MEDS ORDERED: CETIRIZINE 10 MG TABLET PO PRN (14:48)
[2019-10-13] MEDS ORDERED: GABAPENTIN 600 MG TABLET PO PRN (14:48)
[2019-10-13] MEDS ORDERED: ONDANSETRON ODT 4 MG TABLET PO PRN (14:48)
[2019-10-13] MEDS ORDERED: DICLOFENAC 1% GEL 100 GM TUBE TOP PRN (14:48)
[2019-10-13 16:55] LABS: Hematocrit 35.6 VOL% (35.7-47.0); Hemoglobin 11.5 GM/DL (12.0-16.0)
[2019-10-13] MEDS: FERROUS SULFATE 325 MG TABLET PO SCH (18:20)
[2019-10-13] MEDS: PANTOPRAZOLE 40 MG VIAL IV SCH (18:21)
[2019-10-13] MEDS ORDERED: PRAZOSIN 1 MG CAPSULE PO SCH (21:00)
[2019-10-13] MEDS ORDERED: tiZANidine 4 MG TABLET PO SCH (21:00)
[2019-10-13] MEDS: OMEGA 3 ACID ETHYL ESTERS 1 GM CAPSULE PO SCH (21:38)
[2019-10-13 23:10] LABS: Hematocrit 29.3 VOL% (35.7-47.0); Hemoglobin 9.8 GM/DL (12.0-16.0)
[2019-10-14 02:16] LABS: Basophils # 0.1 10*3/uL (0.0-0.2); Basophils % 0.5 % (0.0-0.8); Eosinophils # 0.3 10*3/uL (0.0-0.87); Eosinophils % 2.7 % (0.00-10.9); Hematocrit 31.1 VOL% (35.7-47.0); Immature Granulocytes % 0.3 %; Immature Granulocytes Absolute 0.03 #; Lymphocytes # 1.9 10*3/uL (1.4-4.0); Lymphocytes % 19.4 % (21.3-54.2); Mean Corpuscular HGB Conc 32.2 GM/DL (32-36); Mean Corpuscular Volume 88.6 FL (87-102); Mean Platelet Volume 10.4 FL (9.6-12.0); Monocytes % 7.3 % (1.7-12.7); Neutrophils % 69.8 % (38.7-73.9); Platelet Count 244 T/CUMM (130-400); Red Blood Count 3.51 MC/CUMM (3.8-5.5); Red Cell Distribution Width 14.4 % (9.3-17.3); White Blood Count 9.9 T/CUMM (4-12)
[2019-10-14 02:37] LABS: Calcium 8.5 MG/DL (8.5-10.1); Osmolality,Calculated 277.4 MOS/KG (273-304)
[2019-10-14 05:40] LABS: Hematocrit 31.9 VOL% (35.7-47.0); Hemoglobin 10.3 GM/DL (12.0-16.0)
[2019-10-14] MEDS: PANTOPRAZOLE 40 MG VIAL IV SCH ×3 (06:45→17:33)
[2019-10-14] MEDS ORDERED: methylPREDNISolone SOD SUC 40 MG/1 ML VIAL IV SCH ×2 (08:39→09:00)
[2019-10-14] MEDS ORDERED: methylPREDNISolone SOD SUC 40 MG/1 ML VIAL IV ONE ×2 (08:45→08:46)
[2019-10-14] MEDS ORDERED: ONDANSETRON 4 MG/2 ML VIAL ONE ×2 (09:00→13:37)
[2019-10-14] MEDS ORDERED: METOPROLOL TARTRATE 50 MG TABLET PO SCH (09:00)
[2019-10-14] MEDS ORDERED: LIDOCAINE 2% 5 ML VIAL ONE ×2 (09:00→13:36)
[2019-10-14] MEDS ORDERED: FLUoxetine 20 MG CAPSULE PO SCH (09:00)
[2019-10-14] MEDS ORDERED: propofoL 200 MG/20 ML VIAL IV ONE ×3 (09:00→13:38)
[2019-10-14] MEDS ORDERED: SODIUM CHLORIDE 0.45% 1,000 ML IV SCH (09:00)
[2019-10-14] MEDS ORDERED: diphenhydrAMINE 50 MG/1 ML VIAL IV ONE (09:02)
[2019-10-14] MEDS ORDERED: HEPARIN/NACL 0.9% 2 UNITS/ML 2,000 ML IV ONE (10:27)
[2019-10-14 10:28] LABS: Hematocrit 31.7 VOL% (35.7-47.0)
[2019-10-14] MEDS ORDERED: ceFAZolin 1,000 MG VIAL ONE (11:54)
[2019-10-14] MEDS ORDERED: HEPARIN/NACL 0.9% 2 UNITS/ML 1,000 ML IV ONE (12:08)
[2019-10-14] MEDS ORDERED: MIDAZOLAM 2 MG/2 ML VIAL ONE (13:36)
[2019-10-14] MEDS ORDERED: SEVOFLURANE 1 UNIT/15 MINUTE INH ONE (13:36)
[2019-10-14] MEDS ORDERED: fentaNYL 100 MCG/2 ML VIAL ONE (13:36)
[2019-10-14] MEDS ORDERED: SUCCINYLCHOLINE 200 MG/10 ML VIAL ONE (13:37)
[2019-10-14] MEDS ORDERED: LACTATED RINGERS 1,000 ML IV ONE (13:37)
[2019-10-14] MEDS ORDERED: ROCURONIUM 100 MG/10 ML VIAL IV ONE (13:37)
[2019-10-14] MEDS ORDERED: ePHEDrine 50 MG/ML AMP ONE (13:37)
[2019-10-14] MEDS ORDERED: NEOSTIGMINE 10 MG/10 ML VIAL ONE (13:37)
[2019-10-14] MEDS ORDERED: DEXAMETHASONE 4 MG/1 ML VIAL ONE (13:37)
[2019-10-14] MEDS ORDERED: GLYCOPYRROLATE 0.4 MG/2 ML VIAL ONE ×2 (13:37)
[2019-10-14 14:56] LABS: Hematocrit 33.5 VOL% (35.7-47.0); Hemoglobin 10.7 GM/DL (12.0-16.0)
[2019-10-14] MEDS: FERROUS SULFATE 325 MG TABLET PO SCH ×2 (15:10→16:03)
[2019-10-14] MEDS: OLMESARTAN 20 MG TABLET PO SCH (15:11)
[2019-10-14] MEDS: hydroCHLOROthiazide 25 MG TABLET PO SCH (15:12)
[2019-10-14] MEDS: ATORVASTATIN 10 MG TABLET PO SCH (15:13)
[2019-10-14] MEDS: OMEGA 3 ACID ETHYL ESTERS 1 GM CAPSULE PO SCH ×2 (15:13→20:47)
[2019-10-14] MEDS: amLODIPine 10 MG TABLET PO SCH (15:13)
[2019-10-14] MEDS: CHOLECALCIFEROL 1,000 UNIT TABLET PO SCH (15:14)
[2019-10-14] MEDS: SODIUM CHLORIDE 0.9% 1,000 ML IV SCH ×2 (15:14→21:10)
[2019-10-14] MEDS: POTASSIUM CHLORIDE 20 MEQ TABLET PO SCH (15:16)
[2019-10-14] MEDS: POTASSIUM CHLORIDE RIDER 10 MEQ in PREMIX 1 EACH IV PRN ×4 (16:40→19:45)
[2019-10-15 01:53] LABS: Hematocrit 28.9 VOL% (35.7-47.0); Hemoglobin 9.5 GM/DL (12.0-16.0)
[2019-10-15 07:51] LABS: Calcium 8.5 MG/DL (8.5-10.1); Osmolality,Calculated 275.5 MOS/KG (273-304)
[2019-10-15] MEDS: OMEGA 3 ACID ETHYL ESTERS 1 GM CAPSULE PO SCH ×2 (10:59→21:09)
[2019-10-15] MEDS: OLMESARTAN 20 MG TABLET PO SCH (10:59)
[2019-10-15] MEDS: CHOLECALCIFEROL 1,000 UNIT TABLET PO SCH (11:01)
[2019-10-15] MEDS: ATORVASTATIN 10 MG TABLET PO SCH (11:01)
[2019-10-15] MEDS: hydroCHLOROthiazide 25 MG TABLET PO SCH (11:01)
[2019-10-15] MEDS: POTASSIUM CHLORIDE 20 MEQ TABLET PO SCH (11:01)
[2019-10-15] MEDS: FERROUS SULFATE 325 MG TABLET PO SCH ×2 (11:01→17:55)
[2019-10-15] MEDS: amLODIPine 10 MG TABLET PO SCH (11:01)
[2019-10-15] MEDS: PANTOPRAZOLE 40 MG VIAL IV SCH ×2 (11:02→17:56)
[2019-10-15 11:26] LABS: Hematocrit 29.2 VOL% (35.7-47.0); Hemoglobin 9.5 GM/DL (12.0-16.0)
[2019-10-16 05:22] LABS: Basophils # 0.1 10*3/uL (0.0-0.2); Basophils % 0.7 % (0.0-0.8); Eosinophils # 0.2 10*3/uL (0.0-0.87); Eosinophils % 2.2 % (0.00-10.9); Hematocrit 30.3 VOL% (35.7-47.0); Hemoglobin 9.6 GM/DL (12.0-16.0); Immature Granulocytes % 0.4 %; Immature Granulocytes Absolute 0.04 #; Lymphocytes # 2.6 10*3/uL (1.4-4.0); Lymphocytes % 24.5 % (21.3-54.2); Mean Corpuscular HGB Conc 31.7 GM/DL (32-36); Mean Corpuscular Volume 89.6 FL (87-102); Mean Platelet Volume 10.6 FL (9.6-12.0); Monocytes % 6.2 % (1.7-12.7); Platelet Count 260 T/CUMM (130-400); Red Blood Count 3.38 MC/CUMM (3.8-5.5); Red Cell Distribution Width 14.2 % (9.3-17.3); White Blood Count 10.7 T/CUMM (4-12)
[2019-10-16] MEDS: SODIUM CHLORIDE 0.9% 1,000 ML IV SCH (05:35)
[2019-10-16] MEDS: PANTOPRAZOLE 40 MG VIAL IV SCH (05:37)
[2019-10-16 05:40] LABS: Calcium 8.6 MG/DL (8.5-10.1); Osmolality,Calculated 275.5 MOS/KG (273-304)
[2019-10-16] MEDS: amLODIPine 10 MG TABLET PO SCH (08:25)
[2019-10-16] MEDS: PANTOPRAZOLE 40 MG TABLET PO SCH ×2 (08:25→19:14)
[2019-10-16] MEDS: ATORVASTATIN 10 MG TABLET PO SCH (08:25)
[2019-10-16] MEDS: CHOLECALCIFEROL 1,000 UNIT TABLET PO SCH (08:25)
[2019-10-16] MEDS: OMEGA 3 ACID ETHYL ESTERS 1 GM CAPSULE PO SCH ×2 (08:25→20:42)
[2019-10-16] MEDS: hydroCHLOROthiazide 25 MG TABLET PO SCH (08:25)
[2019-10-16] MEDS: POLYETHYLENE GLYCOL POWDER 17 GM PACK PO SCH ×2 (08:26→20:43)
[2019-10-16] MEDS: FERROUS SULFATE 325 MG TABLET PO SCH ×2 (08:26→17:25)
[2019-10-16] MEDS: POTASSIUM CHLORIDE 20 MEQ TABLET PO SCH (08:26)
[2019-10-16] MEDS: OLMESARTAN 20 MG TABLET PO SCH (08:31)
[2019-10-17 05:14] LABS: Basophils # 0.1 10*3/uL (0.0-0.2); Basophils % 0.5 % (0.0-0.8); Eosinophils # 0.3 10*3/uL (0.0-0.87); Eosinophils % 2.7 % (0.00-10.9); Hematocrit 30.4 VOL% (35.7-47.0); Hemoglobin 9.9 GM/DL (12.0-16.0); Immature Granulocytes % 0.4 %; Immature Granulocytes Absolute 0.04 #; Lymphocytes # 2.4 10*3/uL (1.4-4.0); Lymphocytes % 23.8 % (21.3-54.2); Mean Corpuscular HGB Conc 32.6 GM/DL (32-36); Mean Corpuscular Volume 88.1 FL (87-102); Mean Platelet Volume 10.9 FL (9.6-12.0); Monocytes % 5.9 % (1.7-12.7); Neutrophils % 66.7 % (38.7-73.9); Platelet Count 273 T/CUMM (130-400); Red Blood Count 3.45 MC/CUMM (3.8-5.5); Red Cell Distribution Width 14.2 % (9.3-17.3); White Blood Count 10.2 T/CUMM (4-12)
[2019-10-17 05:27] LABS: Calcium 8.9 MG/DL (8.5-10.1); Osmolality,Calculated 271.8 MOS/KG (273-304)
[2019-10-17] MEDS: PANTOPRAZOLE 40 MG TABLET PO SCH (06:04)
[2019-10-17 07:55] VITALS: BP 129/92
[2019-10-17] MEDS: POTASSIUM CHLORIDE RIDER 10 MEQ in PREMIX 1 EACH IV PRN (09:27)
[2019-10-17] MEDS: ATORVASTATIN 10 MG TABLET PO SCH (09:30)
[2019-10-17] MEDS: OLMESARTAN 20 MG TABLET PO SCH (09:30)
[2019-10-17] MEDS: hydroCHLOROthiazide 25 MG TABLET PO SCH (09:30)
[2019-10-17] MEDS: CHOLECALCIFEROL 1,000 UNIT TABLET PO SCH (09:31)
[2019-10-17] MEDS: FERROUS SULFATE 325 MG TABLET PO SCH (09:31)
[2019-10-17] MEDS: POLYETHYLENE GLYCOL POWDER 17 GM PACK PO SCH (09:32)
[2019-10-17] MEDS: OMEGA 3 ACID ETHYL ESTERS 1 GM CAPSULE PO SCH (09:32)
[2019-10-17] MEDS: amLODIPine 10 MG TABLET PO SCH (09:32)
[2019-10-17] MEDS: POTASSIUM CHLORIDE 20 MEQ TABLET PO SCH (09:38)
[2019-10-17] MEDS ORDERED: POTASSIUM CHLORIDE 20 MEQ TABLET PO ONE (10:30)
== END 2019-10-17 11:31 | disposition home or self-care (01) ==
LOC: N.ED 10:18 → N.2E 12:46 → INTOOBSV 12:57 → N.EDINP 12:57 → SUATTDRO 12:57 → N.2E 13:09
PROVIDERS: ADMIT Internal Medicine Geriatric Medicine; ATTEND Internal Medicine